=== PATIENT | female | born 1965 | race Caucasian/White ===

== ENCOUNTER 2016-09-13 14:30 | Day surgery (SDC) | payer MEDICAID ==
[~2016-09-13] VITALS: Ht 160 cm; Wt 91.0 kg
[2016-09-13 15:19] VITALS: BP 150/83; PULSE 85; RESP 18; TEMP 98.4; O2SAT 98
[2016-09-13 15:31] LABS: BASOPHIL % 0.5 % (0.0-2.0); EOSINOPHIL # 0.1 TH/MM3 (0-0.4); EOSINOPHIL % 1.3 % (0.0-4.0); HEMATOCRIT 45.2 % (35.0-46.0); HEMO FLAGS DIFF FINAL; LYMPH % 32.8 % (9.0-44.0); LYMPHOCYTE # 2.8 TH/MM3 (1.0-4.8); MEAN CELL VOLUME 84.8 FL (80.0-100.0); MEAN CORPUSCULAR HEMOGLOBIN 29.2 PG (27.0-34.0); MEAN CORPUSCULAR HGB CONC 34.5 % (32.0-36.0); MONO % 6.7 % (0.0-8.0); NEUT % 58.7 % (16.0-70.0); PLATELET COUNT 275 TH/MM3 (150-450); RED BLOOD COUNT 5.33 MIL/MM3 (4.00-5.30); RED CELL DISTRIBUTION WIDTH 14.8 % (11.6-17.2); WHITE BLOOD COUNT 8.6 TH/MM3 (4.0-11.0)
[2016-09-13] MEDS ORDERED: ASPI81TA81 (15:31)
[2016-09-13] MEDS ORDERED: DAPA1TAB8 PO (15:31)
[2016-09-13] MEDS ORDERED: PLAV75TA29 PO (15:31)
[2016-09-13] MEDS ORDERED: DULA0.5I SQ (15:31)
[2016-09-13] MEDS ORDERED: LISI2.5T3 PO (15:31)
[2016-09-13] MEDS ORDERED: EVOL1INJ SQ (15:31)
[2016-09-13 15:35] LABS: APTT (PATIENT) 25.4 SEC (24.3-30.1); PROTHROMBIN TIME - PATIENT 10.7 SEC (9.8-11.6)
[2016-09-13] MEDS ORDERED: DIAZEPAM 10 MG TAB PO SCH (15:45)
[2016-09-13] MEDS ORDERED: diphenhydrAMINE HCL 50 MG CAP PO SCH (15:45)
[2016-09-13] MEDS ORDERED: NS 1000P @30 MLS/HR (KVO) IV SCH (15:45)
[2016-09-13 15:59] LABS: BICARBONATE 27.6 MEQ/L (21.0-32.0); POTASSIUM 3.9 MEQ/L (3.5-5.1)
[2016-09-13] MEDS ORDERED: HEPARIN-NS/PF INJ 500 ML ONE (16:29)
[2016-09-13] MEDS ORDERED: VERAPAMIL HCL 5 MG/2 ML VIAL ONE (16:30)
[2016-09-13] MEDS ORDERED: MIDAZOLAM HCL 2 MG/2 ML VIAL ONE ×3 (16:30→16:55)
[2016-09-13] MEDS ORDERED: HEPARIN SODIUM - IV 10,000 UNITS/10 ML VIAL ONE (16:31)
--- NOTE | 2016-09-13 17:25 | CATHPROC ---
Patient Name: SHABBIR MELENDEZ Study #: 1038-17 Initial MD: Carolina Tong Date of : 1965 Study Date: 09/13/2016 Cardiac Catheterization Report 09/13/2016 5:25:38 PM Financial #: [id number] 1 of 10 Patient Name: SHABBIR MELENDEZ Study #: 1038-17 Initial MD: Carolina Tong Date of : 1965 Study Date: 09/13/2016 Entire Case Report Patient Information Patient Name SHABBIR MELENDEZ Date of 1965 Age 50 years Financial # [id number] Gender F AlternateID Lab Number 3 Accession # Room Number Height (in) 63.0 Height (cm) 160.0 BSA 1.94 Weight (lbs) 200.2 Weight (kg) 91.0 Patient Address/Phone Number Home Address [facility] Home Phone Number [address] [facility] [id number] Study Information Study Number Admission Scheduled Start Study Start 1038-17 09/13/2016 09/13/2016 Sep 13 2016 4:03PM Referring Institution Admit Source Facility Department 1 Other [facility] - Qual Research Manager Physician and Clinical Staff Initial Carolina Cody Auto Rental Supervisor Sarita Nye,ANTONY Recorder Kanu Rodarte,(R) Scrub Juan Carlos Flaherty RCIS(BS) Procedures Performed Procedure Location (Site) Coronary Angiograms [facility] Heart Cath 09/13/2016 5:25:38 PM Financial #: [id number] 2 of 10 Patient Name: SHABBIR MELENDEZ Study #: 1038-17 Initial MD: Carolina Tong Date of : 1965 Study Date: 09/13/2016 Equipment Time Client Success Specialist Description Size Mfg Part Number Used/Scraped [id number] 16:55 [employer] WIRE, NITONOL 80CM 80CM Used *[id number] TRANSDUCER, TRUWAVE [id number] 16:09 CASTILLO NYE * Used W/STOCKCOCK *[id number] MPIS-502-10.0- INTRODUCER SET, 16:09 [employer]. FR 5 SC-NT-U-SST Used MICROPUNCTURE, STIFFENED *[id number] 534-560T *[id number] WIRE, HYDROSTEER 260CM [id number] 16:53 DAIG/ST. KATHI MEDICAL 260CM Used ANGLED GLIDE *[id number] 16:09 MEDLINE INDUSTRIES PACK, CCL CUSTOM * Used *[id number] 16:09 MEDLINE PACER PEN, SKIN DUAL W/ RULER * Used *[id number] BAND, RADIAL COMPRESSION TR [id number] 17:16 [employer] MEDICAL 24CM Used SHORT 24 *[id number] 16:09 [employer] MEDICAL WIRE, 3MMJ .035 180CM 180CM Used *[id number] 16:09 NAMIC MANIFOLD, 4 PORT * Used *[id number] 16:09 NYCOMED OMNIPAQUE, 350 MG, 150ML 150ML [id number] Used [id number] 16:09 [employer] MEDICAL BLANKET,WARM AIR CCL * Used *[id number] CATHETER, FR5 OPTITORQUE [id number] 16:39 TERUMO MEDICAL FR 5 Used RADIAL TIG 4.0 *[id number] 16:09 TERUMO MEDICAL SHEATH, FR5 TERUMO (10CM) FR 5 [id number] Used SHEATH, FR6 TRANSRADIAL 17:00 TERUMO MEDICAL FR 6 [id number] Used SLENDER 10CM Equipment Model, Serial, Lot Number and Expiration Data Description Model Number Serial Number Lot Number Expiration Date WIRE, HYDROSTEER 260CM [id number] 02-13-2019 ANGLED GLIDE Insurance Information Insurance Payor Private Health Insurance Third Democrat Third Democrat Number [facility] History: Current Medications Medication Dosage/Unit Route Frequency Last Date/Time Taken ASA PLAVIX LISINOPRIL 09/13/2016 5:25:38 PM Financial #: [id number] Patient Name: SHABBIR MELENDEZ Study #: 1038-17 Initial MD: Carolina Tong Date of : 1965 Study Date: 7 History: Allergies Allergy Reaction Slo-Bid Gyrocaps SLOBID Atorvastatin Codeine Fentanyl artificial sweetners History: Risk Factors Family History of Hypertension Dyslipidemia Previous ID Previous Heart Failure Premature CAD Yes Yes Yes No No Prior Valve Prior PCI Prior PCIDate Prior CABG Prior CABGDate Surgery No Yes 07/15/2016 Yes 01/15/2016 Cerebrovascular Peripheral Artery Chronic Lung On Dialysis Diabetes Diabetes Therapy Disease Disease Disease No No No No Yes Oral History: Stress Tests Stress or Imaging Studies Performed No History: Other Disease Selection Items CAD HTN History: Other Current Smoker No Labs Hgb (g/dl) Hct (%) RBC (MIL/MM3) WBC (l/cumm) Platelets (thousands) 12.00-18.00 37.00-55.00 4.80-6.20 4.80-10.80 140.00-450.00 15.6 45.2 5.3 8.6 275 Glucose (mg/dl) BUN (mg/dl) Creatinine (mg/dl) BUN:Creatinine (1:x) 60.00-110.00 8.00-20.00 0.10-9.00 10.00-20.00 107 16 0.6 26.7 Na (meq/l) K (meq/l) Cl (meq/l) CO2 (mmol/L) Ca (mg/dl) 138.00-146.00 3.80-5.10 101.00-111.00 23.00-30.00 9.00-10.50 139 3.9 104 27.6 9.8 09/13/2016 5:25:38 PM Financial #: [id number] Patient Name: SHABBIR MELENDEZ Study #: 1038-17 Initial MD: Carolina Tong Date of : 1965 Study Date: 7 PT (sec) PTT (sec) INR (PTT:PT) 9.40-11.40 25.10-32.70 0.50-2.00 10.7 25.4 1 CPK-MB (ng/ML) 0.00-7.00 Not Drawn Medication Medication Total Dose (Bolus/Oral) Medication Total Dosage/Unit 1% XYLOCAINE 5 mL HEPARIN 4600 units RADIAL COCKTAIL 5 mL (Bolus) VERSED 6 mg Medications (Bolus/Oral) Medication Time Given Dosage/Unit Administered By Reason VERSED 09/13/2016 4:37:05 PM 2 mg Sarita Nye 2 mg VERSED given in lab by Sarita Nye, RN in Left Antecubital via Peripheral IV. Ordered by Carolina Ma. 1% XYLOCAINE 09/13/2016 4:38:17 PM 5 mL Sarita Nye 5 mL 1% XYLOCAINE given in lab by Sarita Nye RN in Right Radial via Subcutaneous. Ordered by Carolina Tong. Ntg 200mcg Verapamil 2.5mg Heparin RADIAL COCKTAIL 09/13/2016 4:46:57 PM 5 mL (Bolus) Sarita Nye 3000U 5 mL (Bolus) RADIAL COCKTAIL given in lab by Sarita Nye RN via Radial. Using [Solution Name]. Ordered by Carolina Tong. Reason: Ntg 200mcg Verapamil 2.5mg. HEPARIN 09/13/2016 4:47:48 PM 4600 units Sarita Nye 4600 units HEPARIN given in lab by Sarita Nye RN in Left Antecubital via Peripheral IV. Order ed by Carolina Tong. VERSED 09/13/2016 4:48:09 PM 2 mg Sarita Nye 2 mg VERSED given in lab by Sarita Nye RN in Left Antecubital via Peripheral IV. Ordered by Carolina Ma. VERSED 09/13/2016 4:56:42 PM 2 mg Sarita Nye 2 mg VERSED given in lab by Sarita Nye RN in Left Antecubital via Peripheral IV. Ordered by Carolina Ma. Medication (Drip) Medication Time Given Dosage/Unit Concentration/Unit Diluent (ml) Solution IV Solutions 09/13/2016 4:29:35 PM 0 mL (IV) 500 NaCl .9 IV Solutions given in lab by Sarita Nye RN in Left Antecubital via Peripheral IV. Pump/Drip F low = 20 ml/hr using NaCl .9. 09/13/2016 5:25:38 PM Financial #: [id number] Patient Name: SHABBIR MELENDEZ Study #: 1038-17 Initial MD: Carolina Tong Date of : 1965 Study Date: 09/13/2016 Initial Case Assessment Cardiovascular HR Rhythm NIBP Chest Pain 70 Sinus 133/84 0 Edema Present Skin color Skin None Normal Warm Dry Circulatory - Right Pulses Dorsalis Pedis Femoral Radial 1 2 1 Scale (0,1,2,3,4,d) Scale (0,1,2,3,4,d) Neurological State Oriented to time-place- Alert Moves all extremities person Respiration - General Respiration Rate SpO2 (%) O2 (lpm) (B/min) 13 98 0 Final Case Assessment Cardiovascular HR Rhythm NIBP Chest Pain 63 Sinus 127/73 0 Edema Present Skin color Skin None Normal Warm Dry Circulatory - Right Pulses Dorsalis Pedis Femoral Radial 1 2 1 Scale (0,1,2,3,4,d) Scale (0,1,2,3,4,d) Neurological State Oriented to time-place- Alert Moves all extremities person Respiration - General Respiration Rate SpO2 (%) O2 (lpm) (B/min) 38 100 0 09/13/2016 5:25:38 PM Financial #: [id number] Patient Name: SHABBIR MELENDEZ Study #: 1038-17 Initial MD: Carolina Tong Date of : 1965 Study Date: 09/13/2016 Vitals Summary Pain Time HR NIBP SpO2 Resp Temp EtCO2 Apnea Narciso Valiente Comment Level 16:30:39 69 133/84 14 10 0 2 16:35:41 71 133/84 99.0 43 10 0 2 16:40:44 66 115/71 95.0 15 10 0 2 16:45:39 63 126/70 98.0 10 10 0 2 16:50:46 84 105/57 91.0 3 10 0 2 16:55:39 68 112/62 93.0 4 10 0 2 17:00:40 74 123/74 96.0 0 10 0 2 17:05:43 71 129/78 97.0 6 10 0 2 17:10:44 76 135/82 98.0 0 10 0 2 17:16:16 65 127/73 100.0 21 10 0 2 Narciso Score Summary Time Activity Resp Circ LOC Color Total Score 16:30:39 2 2 2 2 2 10 16:35:41 2 2 2 2 2 10 16:40:44 2 2 2 2 2 10 16:45:39 2 2 2 2 2 10 16:50:46 2 2 2 2 2 10 16:55:39 2 2 2 2 2 10 17:00:40 2 2 2 2 2 10 17:05:43 2 2 2 2 2 10 17:10:44 2 2 2 2 2 10 17:16:16 2 2 2 2 2 10 Narciso Score Definition Table Activity - 0 Activity - 1 Activity - 2 No Movement to Command Weak Hand Grasp Lift Head, Good Hand Grasp Respiration - 0 Respiration - 1 Respiration - 2 Apneic or Obstructed Shallow Breath, Airway Adjunct Deep Breath, Cough Freely Circulation - 0 Circulation - 1 Circulation - 2 B/P > 50% Admission B/P B/P > 20-50% Admission B/P B/P Stable X3 Level of Consciousness - 0 Level of Consciousness - 1 Level of Consciousness - 2 Not Responding Arousable On Calling Awake and Aware Color - 0 Color- 1 Color - 2 Cyanotic Lips, Nailbed, Skin Pale, Dusky [place] Or Normal 09/13/2016 5:25:38 PM Financial #: [id number] Patient Name: SHABBIR MELENDEZ Study #: 1038-17 Initial MD: Carolina Tong Date of : 1965 Study Date: 09/13/2016 Chronological Log Time Study Chronological Log 16:23:12 Patient arrived via Bed. 16:23:13 Patient Name, D.O.B, / Armband Verified By R.N. 16:23:15 Consent signed by the physician and the patient and verified by the Qual Research Manager staff. 16:23:15 Pre-op and post- op instructions given; patient acknowledges understanding of instructions. 16:28:40 MD arrived. 16:28:42 Verbal Stimulation=2 Physical Stimulation=2 Airway=2 Respiration=2 TOTAL=8. (0=absent, 1=li mited, 2=present) 16:28:58 Presedation assessment performed by Qual Research Manager RN. 16:29:00 Allens test performed on the right radial and ulnar artery. 16:29:06 Patient has been NPO for More than 6Hrs. 16:29:06 Skin Breakdown- none per patient. 16:29:17 Patient Warmer Placed on the Table. 16:29:21 Adrianne Prominences Protected 16:29:23 A # 20 IV was noted in the Antecubital (left). Grade = 0 IV Solutions given in lab by Sarita Nye, RN in Left Antecubital via Peripheral IV. Pump/ Drip Flow = 20 ml/hr 16:29:35 using NaCl .9. 16:29:59 History and physical on the chart or being dictated. Assessment: Initial Case, HR=70 BPM, Rhythm=Sinus, SSZR=038/84 mmhg, Chest Pain=0, Edema=None, Color=Normal, Skin = Warm, Dry 16:30:01 Right Pulses: Luis Ped=1, Femoral=2, Radial=1 Neurological: State=Alert, Ox3, HEATH Respiration: Resp=13 B/min, SpO2=98 %, O2=0 lpm Vitals capture started with the following parameters, Patient=Adult, Interval=5 min, Initial Pr wexbst=055 mmHg, 16:30:03 Deflation Rate=5 mmHg 16:30:39 HR=69 bpm, NJZW=035/84 mmhg, Resp=14 B/min, Pain=0, Narciso=10, Valiente=2 16:32:22 Reference ECG taken 16:33:03 Right Radial and groin(s) prepped with 2% chlorhexidine, and with a 3 min. waiting time. 16:35:41 HR=71 bpm, XOQN=562/84 mmhg, SpO2=99.0 %, Resp=43 B/min, Pain=0, Narciso=10, Valiente=2 16:37:05 2 mg VERSED given in lab by Sarita Nye, RN in Left Antecubital via Peripheral IV. Or dered by Carolina Tong. Time Out. Correct patient, correct procedure,correct physician, power injector loaded with cont rast with surgical team 16:37:38 present. Time Out Concurred by , individual staff in procedure 16:38:01 Case Start 5 mL 1% XYLOCAINE given in lab by Sarita Nye, RN in Right Radial via Subcutaneous. Order ed by Ran 16:38:17 Carolina. 16:40:33 Pressure channel 1 zeroed. 16:40:44 HR=66 bpm, CWNI=270/71 mmhg, SpO2=95.0 %, Resp=15 B/min, Pain=0, Narciso=10, Valiente=2 16:45:39 HR=63 bpm, FGYL=436/70 mmhg, SpO2=98.0 %, Resp=10 B/min, Pain=0, Narciso=10, Valiente=2 16:46:27 Access site was Radial Artery. 16:46:35 A SHEATH, FR5 TERUMO (10CM) FR 5 was advanced into the Fem Art (right) using the Percutaneo us technique. 5 mL (Bolus) RADIAL COCKTAIL given in lab by Sarita Nye RN via Radial. Using [Solution Name]. Ordered by 16:46:57 Carolina Tong. Reason: Ntg 200mcg Verapamil 2.5mg. 09/13/2016 5:25:38 PM Financial #: [id number] 8 of 10 Patient Name: SHABBIR MELENDEZ Study #: 1038-17 Initial MD: Carolina Tong Date of : 1965 Study Date: 09/13/2016 4600 units HEPARIN given in lab by Sarita Nye RN in Left Antecubital via Peripheral IV. Ordered by Ran 16:47:48 Carolina. 16:48:09 2 mg VERSED given in lab by Sarita Nye RN in Left Antecubital via Peripheral IV. Or dered by Carolina Tong. A JOESPH INFINITI CATHETER FR 5 was advanced over a wire. OMNIPAQUE, 350 MG, 150ML 150ML was used for 16:49:46 injections. 16:50:46 HR=84 bpm, WKIK=444/57 mmhg, SpO2=91.0 %, Resp=3 B/min, Pain=0, Narciso=10, Valiente=2 16:55:39 HR=68 bpm, EWJC=938/62 mmhg, SpO2=93.0 %, Resp=4 B/min, Pain=0, Narciso=10, Valiente=2 16:56:42 2 mg VERSED given in lab by Sarita Nye RN in Left Antecubital via Peripheral IV. Or dered by Carolina Tong. 16:57:42 A SHEATH, FR5 TERUMO (10CM) FR 5 was exchanged in the Radial (right). This was necessary in order ~REASON~. A JOESPH INFINITI CATHETER FR 5 was advanced over a wire. OMNIPAQUE, 350 MG, 150ML 150ML was used for 16:59:36 injections. 17:00:40 HR=74 bpm, MYQL=998/74 mmhg, SpO2=96.0 %, Resp=0 B/min, Pain=0, Narciso=10, Valiente=2 17:01:53 Wire removed Recorded Pressure: Ao, HR=72, Condition=Condition 1 17:02:01 (Aorta) Ao 121/65/89 17:04:05 The KENDRICK was injected and visualized at various angles. OMNIPAQUE, 350 MG, 150ML 150ML used . 17:05:43 HR=71 bpm, PRWY=629/78 mmhg, SpO2=97.0 %, Resp=6 B/min, Pain=0, Narciso=10, Valiente=2 17:10:44 HR=76 bpm, CXKZ=656/82 mmhg, SpO2=98.0 %, Resp=0 B/min, Pain=0, Narciso=10, Valiente=2 Recorded Pressure: Ao, HR=72, Condition=Condition 1 17:12:10 (Aorta) Ao 131/72/97 17:12:55 Catheter was removed 17:13:38 Case End Assessment: Final Case, HR=63 BPM, Rhythm=Sinus, IVOG=131/73 mmhg, Chest Pain=0, Edema=None, Color=Normal, Skin = Warm, Dry 17:14:57 Right Pulses: Luis Ped=1, Femoral=2, Radial=1 Neurological: State=Alert, Ox3, HEATH Respiration: Resp=38 B/min, LaG8=374 %, O2=0 lpm Radial Compression Device Used. 15 mLs of air placed in BAND, RADIAL COMPRESSION TR SHORT 24 24 CM. Affected 17:15:50 hand 98 % O2 saturation. 17:16:16 HR=65 bpm, UDTW=216/73 mmhg, HzY7=434.0 %, Resp=21 B/min, Pain=0, Narciso=10, Valiente=2 17:16:23 No case complications noted. 17:18:02 Bedside Report will be given. 17:20:46 Vitals capture stopped. 17:21:03 A Left Heart Cath was performed. 17:21:31 Cine recording checked. Recorded Pressures: Condition 1 Time Chamber Pressure Manual Override (*) 17:02:01 Ao 121/65/89 s/d/m 17:12:10 Ao 131/72/97 s/d/m 09/13/2016 5:25:38 PM Financial #: [id number] Patient Name: SHABBIR MELENDEZ Study #: 1038-17 Initial MD: Carolina Tong Date of : 1965 Study Date: 09/13/2016 End Study - Contrast Media Used In Study Contrast Total Opened (mL) Total Used (mL) Total Wasted (mL) Omnipaque 150 75 75 End Study - Maximum Contrast Load Max Contrast Load (mL) 758.3 End Study - Radiation Exposure Fluoro Time (minutes) 3.7 End Study - Patient Disposition Complications Transferred To Interventional Outcome No Outpatient Bed No attempt made 09/13/2016 5:25:38 PM Financial #: [id number] 10 10
--- NOTE | 2016-09-13 20:20 | MA ---
cc: KAREN MCRAE M.D.,JOHN Mann D.O. DATE 09/13/[address] John Kim. INDICATION She is a 50-year-old white female with coronary artery disease and is status post two-vessel CABG and a stent to her distal right coronary artery who presented with exertional angina four weeks after her RCA stent. The patient was brought to the lab to rule out in-stent restenosis or thrombosis. PROCEDURES PERFORMED 1. Left cardiac catheterization via right radial approach. 2. Selective renal angiography. DETAILS OF PROCEDURE 1% lidocaine to right wrist. Micropuncture needle into radial artery, later exchanged for a 6-[place] sheath. Renal angiography was obtained with a 5-[place] JOESPH catheter. Other than some arm pain, the patient tolerated the procedure well and left the laboratory hemodynamically stable and chest pain free. MEDICATIONS 1. Versed 6 mg IV x1. 2. Heparin 4600 units IV x1. 3. Verapamil 2.5 mg intra-radial. 4. Nitroglycerin 200 mcg intra-radial. HEMODYNAMIC RESULTS The patient remained in normal sinus rhythm. Aortic pressure was 131/72 with a mean of 97 mmHg. ANGIOGRAPHIC RESULTS PENG to the RCA was widely patent. There was also a patent stent in the distal RCA right before the takeoff of the PDA. The PDA had diffuse disease with at the most 50% stenosis in its midsegment. There was also a posterior ventricular branch also with diffuse disease but at the most 50% stenosis. The circumflex and PENG graft were not visualized since they were widely patent in a cardiac catheterization performed just four weeks ago. IMPRESSION 1. Patent PENG to RCA. 2. Patent stent to distal RCA. 3. No critical disease of the PDA and posterior left ventricular branch. RECOMMENDATIONS Continue medical management with aspirin, Plavix, statin, beta blockers and JHONY inhibitor as tolerated. Will try Ranexa 500 mg twice a day for angina. Risk factor modification with emphasis on cardiac diet and regular exercise recommended as well. MD ROSEANNE Carroll/ANANT /5:28 PM /8:03 PM
== END 2016-09-13 20:44 | disposition home or self-care (01) ==
LOC: HDOC 14:30 → HDIC 14:31 → HDOC 20:44
PROVIDERS: ATTEND Specialist
DX: I25.118 Atherosclerotic heart disease of native coronary artery with other forms of angina pectoris (principal); I10 Essential (primary) hypertension; E11.9 Type 2 diabetes mellitus without complications; E78.5 Hyperlipidemia, unspecified; E66.9 Obesity, unspecified; R07.89 Other chest pain; Z68.35 Body mass index [BMI] 35.0-35.9, adult; Z79.82 Long term (current) use of aspirin; Z79.02 Long term (current) use of antithrombotics/antiplatelets; Z95.1 Presence of aortocoronary bypass graft; Z95.5 Presence of coronary angioplasty implant and graft; Z88.8 Allergy status to other drugs, medicaments and biological substances; Z88.5 Allergy status to narcotic agent
CPT/HCPCS: 80048; 85025; 85610; 85730; 93454; C1769; C1893; J1644; J2250; Q0163